=== PATIENT | female | born 2000 | race Caucasian/White ===

== ENCOUNTER 2021-03-18 17:41 | Emergency (ER) | payer OTHER, SELFPAY ==
--- NOTE | ~2021-03-18 | CT_ITS ---
EXAMINATION: CT abdomen pelvis w con INDICATION: Vomiting and weight loss TECHNIQUE: Computed tomographic images of the abdomen and pelvis were obtained after the administrati on of 100 cc of Omnipaque 350 intravenous contrast. The dose-length product (DLP) was 174.54 mGy-cm. Automated exposure control and iterative reconstruction technique were employed. COMPARISON: None available FINDINGS: The lung bases are clear. The heart size is normal. The liver, spleen, pancreas, gallbladde r, and adrenal glands are normal. The right kidney is unremarkable. There is a 10 mm cyst of the left kidney. No pathologically enlarged abdominal or pelvic lymph nodes are identified. There is no free intraperitoneal gas or evidence of bowel obstruction. The appendix is not clearly identified. IMPRESSION: 1. No CT correlate for the patient's symptoms. Reviewed, dictated and finalized at location A.
[2021-03-18 17:49] VITALS: BP 96/82; PULSE 104; RESP 17; TEMP 36.7; O2SAT 99
[2021-03-18 18:01] LABS: Basophils Percent Auto 0.4 % (0.2-1.2); Eosinophils Percent Auto 0.1 % (0-4.4); Hematocrit 43.7 % (37.0-47.0); Hemoglobin 14.2 g/dL (12.0-15.0); Immature Granulocyte Absolute 0.02 K/mm3 (0.00-0.031); Immature Granulocyte Percent A 0.3 % (0-0.5); Lymphocytes Absolute Auto 2.36 K/mm3 (0.9-3.2); Lymphocytes Percent Auto 32.7 % (18.3-44.2); Mean Corpuscular HGB Conc 32.5 g/dl (32-36); Mean Corpuscular Hemoglobin 28.5 pg (26-34); Mean Corpuscular Volume 87.6 fl (80-100); Mean Platelet Volume 10.5 fl (7.4-10.4); Monocytes Absolute Auto 0.6 K/mm3 (0.1-0.6); Monocytes Percent Auto 7.9 % (2.6-8.5); Neutrophils Absolute Auto 4.2 K/mm3 (1.3-6.7); Neutrophils Percent Auto 58.6 % (45.5-73.1); Platelet Count Result 200 k/mm3 (150-375); Red Blood Count 4.99 M/mm3 (4.2-5.4); Red Cell Distribution Width 13.1 % (11.5-14.5); White Blood Count 7.2 K/mm3 (4.5-10.0)
[2021-03-18 18:10] LABS: Alanine Aminotransferase 84 U/L (4-35); Albumin Level 5.2 g/dL (3.5-5.1); Alkaline Phosphatase 59 U/L (38-126); Anion Gap 13 mmol/L (8-16); Aspartate Amino Transferase 72 U/L (14-36); Bilirubin,Total 2.6 mg/dL (0.2-1.3); Blood Urea Nitrogen 21 mg/dL (7-17); Calcium 10.1 mg/dL (8.4-10.2); Carbon Dioxide 28 mmol/L (22-30); Chloride 95 mmol/L (98-107); Estimated CRCL calculation 77 ml/min; Estimated Glomerular Filt Rate > 60; Glucose 89 mg/dL (65-110); Lipase 57 U/L (23-300); Potassium 3.4 mmol/L (3.4-5.0); Sodium 136 mmol/L (137-145)
--- NOTE | 2021-03-18 18:10 | ED.GENADULT ---
HPI - General Adult General Chief complaint: Abdominal Pain Stated complaint: ABD pain x 3-4 days Time Seen by Provider: 03/18/21 17:49 Source: patient and RN notes reviewed Mode of arrival: ambulatory Limitations: no limitations History of Present Illness HPI narrative: Patient is a 20-year-old female who presents to emergency department for evaluation of nausea and vomiting since the went to urgent care yesterday was given Zofran but continues to have emesis and generalized abdominal pain patient denies any diarrhea rectal bleeding presents in no distress patient denies sick contacts or URI symptoms Related Data Allergies Allergy/AdvReac Type Severity Reaction Status Date / Time No Known Allergies Allergy Verified 03/18/21 17:54 Review of Systems Review of Systems: All systems reviewed & are unremarkable except as noted in HPI and below PMFSH Family History Family History (Updated 06/23/09 @ 11:03 by DOCTOR UNKNOWN) Other Diabetes mellitus Hypertension Social History Social History Second hand tobacco smoke exposure: Yes Gender identity (if verbalized by the patient): Female Exam Narrative: GENERAL: Well-appearing, well-nourished, uncomfortable and in no acute distress. HEAD: Normocephalic, atraumatic. EYES: PERRLA and EOMI. ENT: Nares clear, no rhinorrhea or epistaxis. Mucous membranes moist. CHEST: Clear to auscultation. No respiratory distress. No wheezes rales or rhonchi HEART: Regular rate and rhythm. No murmur heard. Normal peripheral pulses. ABDOMEN: Soft, generalized tenderness with voluntary guarding, nondistended, normal active bowel sounds. EXTREMITIES: Normal range of motion. No edema. SKIN: Warm, dry, no rash. NEURO: No focal deficits. Alert and oriented x3. Cranial nerves II through XII grossly intact PSYCH: Normal mood and affect. Course Course Emergency Course: Patient in the room no distress aware of case findings treatment plan diagnosis agreeing to follow-up as instructed felt appropriate for outpatient reevaluation made aware of case findings treatment plan and diagnosis Vital Signs Vital signs: Vital Signs Temperature 98.1 F 03/18/21 17:49 Pulse Rate 104 H 03/18/21 17:49 Respiratory Rate 17 03/18/21 17:49 Blood Pressure 96/82 L 03/18/21 17:49 Pulse Oximetry 99 03/18/21 17:49 Temperature 98.1 F 03/18/21 17:49 Pulse Rate 104 H 03/18/21 17:49 Respiratory Rate 17 03/18/21 17:49 Blood Pressure 96/82 L 03/18/21 17:49 Pulse Oximetry 99 03/18/21 17:49 Medical Decision Making MDM Narrative Medical decision making narrative: Patient presented with nausea and vomiting in the room in no distress aware of case findings treatment plan and diagnosis felt appropriate for outpatient reevaluation tolerating p.o. intake no concerning findings in the evaluation will be referred to primary care and gastroenterology for further evaluation Vital Signs Vital Signs: Vital Signs Temperature 98.1 F 03/18/21 17:49 Pulse Rate 104 H 03/18/21 17:49 Respiratory Rate 17 03/18/21 17:49 Blood Pressure 96/82 L 03/18/21 17:49 Pulse Oximetry 99 03/18/21 17:49 Temperature 98.1 F 03/18/21 17:49 Pulse Rate 104 H 03/18/21 17:49 Respiratory Rate 17 03/18/21 17:49 Blood Pressure 96/82 L 03/18/21 17:49 Pulse Oximetry 99 03/18/21 17:49 Lab Data Result diagrams: 03/18/21 17:56 03/18/21 17:56 Labs: Lab Results 03/18/21 03/18/21 03/18/21 Range/Units 17:56 17:56 18:14 WBC 7.2 (4.5-10.0) K/mm3 RBC 4.99 (4.2-5.4) M/mm3 Hgb 14.2 (12.0-15.0) g/dL Hct 43.7 (37.0-47.0) % MCV 87.6 (80-100) fl MCH 28.5 (26-34) pg MCHC 32.5 (32-36) g/dl RDW 13.1 (11.5-14.5) % Plt Count 200 (150-375) k/mm3 MPV 10.5 H (7.4-10.4) fl Immature Gran % (Auto) 0.3 (0-0.5) % Neut % (Auto) 58.6 (45.5-73.1) % Lymph % (Aut
[2021-03-18] MEDS: FAMOTIDINE 20 MG/2 ML VIAL IV PUSH (18:14)
[2021-03-18] MEDS: SODIUM CHLORIDE 0.9% IV 1,000 ML 999 ML IV CONT (18:14)
[2021-03-18] MEDS: ONDANSETRON INJ 4 MG/2 ML VIAL IV PUSH (18:15)
[2021-03-18] MEDS: HYOSCYAMINE SULFATE 0.125 MG TABLET PO (18:21)
[2021-03-18 18:23] LABS: Add Urine Microscopic? YES; Appearance Urine Clear (Clear); Bacteria Urine Trace /hpf; Bilirubin Urine Negative (Negative); Blood Urine 3+ (Negative); Color Urine Amber (Yellow); Glucose Urine UA Negative (Negative); Ketones Urine Negative (Negative); Leukocyte Esterase Ur Negative LEU/UL (Negative); Mucus Urine Heavy /lpf; Nitrate Urine Negative (Negative); Protein Urine 1+ mg/dL (Negative); Specific Grav Ur 1.025 (1.001-1.035); Squamous Epithelial Cell Urine Many /hpf (Few)
[2021-03-18 19:53] VITALS: BP 97/74; PULSE 100; RESP 16; O2SAT 99
== END 2021-03-18 20:09 | disposition home or self-care (01) ==
PROVIDERS: Emergency Medicine Emergency Medical Services; Emergency Provider Emergency Medicine
DX: R10.84 Generalized abdominal pain (principal); Z77.22 Contact with and (suspected) exposure to environmental tobacco smoke (acute) (chronic)
CPT/HCPCS: 36415; 74177; 80053; 81001; 81025; 83690; 85025; 87077; 87086; 87088; 96361; 96365; 96375; 99284; A9270; J0131; J2405; J7030; Q9967

== ENCOUNTER 2021-04-15 11:12 | Emergency (ER) | payer OTHER, SELFPAY ==
[2021-04-15 11:17] VITALS: BP 97/72; PULSE 76; RESP 18; TEMP 37.3; O2SAT 100
--- NOTE | 2021-04-15 12:15 | ED.NAVMDI ---
HPI - Nausea/Vomiting/Diarrhea General Chief complaint: Nausea/Vomiting/Diarrhea Stated complaint: Abd Pain,Vomiting Time Seen by Provider: 04/15/21 12:10 Source: patient Mode of arrival: ambulatory Limitations: no limitations History of Present Illness HPI Narrative: Patient is a 20-year-old female complaining of nausea and vomiting for the past months . Patient also states that she would have intermittent abdominal pain but currently denies any pain. Patient describes her vomitus is nonbilious nonbloody. Patient denies any chest pain, shortness of breath, diarrhea, fever, chills or urinary symptoms. Patient admits to smoking marijuana regularly. Related Data Allergies Allergy/AdvReac Type Severity Reaction Status Date / Time No Known Allergies Allergy Verified 04/15/21 11:20 Review of Systems Review of Systems: All systems reviewed & are unremarkable except as noted in HPI and below Constitutional: Constitutional: Denies body ache(s), Denies chills, Denies excessive sweating, Denies fatigue, Denies fever(s), Denies headache(s), Denies lethargy, Denies malaise, Denies weakness and Denies weight loss Eyes: Eyes: Denies blurry vision, Denies change in vision and Denies loss of vision ENT: Denies dizziness, Denies ear discharge, Denies headache(s), Denies lip swelling, Denies epistaxis, Denies nasal congestion, Denies neck pain, Denies throat swelling and Denies tongue swelling Cardiovascular: Cardiovascular: Denies chest pain, Denies chest pain at rest, Denies chest pain with activity, Denies diaphoresis, Denies rapid heart rate, Denies edema, Denies irregular heart rhythm, Denies lightheadedness, Denies palpitations, Denies dyspnea and Denies dyspnea on exertion Respiratory: Respiratory: Denies chest congestion, Denies cough, Denies hemoptysis, Denies dyspnea and Denies dyspnea on exertion Gastrointestinal: Gastrointestinal: Denies abdominal pain, Denies melena, Denies hematochezia, Denies diarrhea and Denies hematemesis Musculoskeletal: Musculoskeletal: Denies abnormal gait, Denies deformity, Denies joint swelling, Denies limited range of motion, Denies neck pain and Denies numbness Neurologic: Denies Abnormal speech present, Denies abnormal gait, Denies confusion, Denies dizziness, Denies headache(s), Denies focal weakness, Denies loss of vision, Denies numbness, Denies Other visual disturbances, Denies Sensory deficit (Neuro) and Denies weakness Psychiatric: Psychiatric: Denies confusion, Denies depression, Denies auditory hallucinations, Denies homicidal ideation and Denies suicidal ideation Endocrine: Endocrine: Denies cold intolerance, Denies excessive sweating, Denies fatigue, Denies heat intolerance and Denies palpitations Hematologic/Lymphatic: Hematologic/Lymphatic: Denies easy bleeding and Denies easy bruising Allergic/Immunologic: Allergic/Immunologic: Denies lip swelling, Denies throat swelling and Denies tongue swelling PMFSH Family History Family History (Updated 06/23/09 @ 11:03 by DOCTOR UNKNOWN) Other Diabetes mellitus Hypertension Social History Social History Second hand tobacco smoke exposure: Yes Gender identity (if verbalized by the patient): Female Comments Past medical history: None Family history: Diabetes, high blood pressure Social history: Positive for smoker, no EtOH, positive for marijuana use Exam Const: General: cooperative, healthy appearing, comfortable, no acute distress, well developed, alert and awake; No confusion Orientation/consciousness: oriented to person, oriented to place, oriented to time, patient oriented x3 and No confusion Limitations: no limitations HENMT: Head: normal to inspection, normocephalic and atraumatic Ears: hearing grossly normal bilaterally, TM normal on the right and TM normal on the left General nose exam: Normal external nose present, Normal nares present and No nasal discharge presen
[2021-04-15 12:19] LABS: Basophils Percent Auto 0.2 % (0.2-1.2); Hematocrit 39.6 % (37.0-47.0); Hemoglobin 13.1 g/dL (12.0-15.0); Immature Granulocyte Absolute 0.03 K/mm3 (0.00-0.031); Immature Granulocyte Percent A 0.4 % (0-0.5); Lymphocytes Absolute Auto 1.15 K/mm3 (0.9-3.2); Lymphocytes Percent Auto 13.9 % (18.3-44.2); Mean Corpuscular HGB Conc 33.1 g/dl (32-36); Mean Corpuscular Hemoglobin 29.2 pg (26-34); Mean Corpuscular Volume 88.4 fl (80-100); Mean Platelet Volume 10.7 fl (7.4-10.4); Monocytes Absolute Auto 0.4 K/mm3 (0.1-0.6); Monocytes Percent Auto 4.6 % (2.6-8.5); Neutrophils Absolute Auto 6.7 K/mm3 (1.3-6.7); Neutrophils Percent Auto 80.9 % (45.5-73.1); Platelet Count Result 174 k/mm3 (150-375); Red Blood Count 4.48 M/mm3 (4.2-5.4); Red Cell Distribution Width 13.1 % (11.5-14.5); White Blood Count 8.3 K/mm3 (4.5-10.0)
[2021-04-15 12:32] LABS: Alanine Aminotransferase 27 U/L (4-35); Albumin Level 4.7 g/dL (3.5-5.1); Alkaline Phosphatase 42 U/L (38-126); Anion Gap 11 mmol/L (8-16); Aspartate Amino Transferase 34 U/L (14-36); Bilirubin,Total 0.8 mg/dL (0.2-1.3); Blood Urea Nitrogen 19 mg/dL (7-17); Calcium 9.6 mg/dL (8.4-10.2); Carbon Dioxide 26 mmol/L (22-30); Chloride 96 mmol/L (98-107); Estimated CRCL calculation 90 ml/min; Estimated Glomerular Filt Rate > 60; Glucose 104 mg/dL (65-110); Lipase 31 U/L (23-300); Potassium 3.5 mmol/L (3.4-5.0); Sodium 133 mmol/L (137-145)
[2021-04-15 12:33] VITALS: BP 103/67; PULSE 56
[2021-04-15 12:34] VITALS: BP 118/78; PULSE 86
[2021-04-15 12:35] VITALS: BP 116/85; PULSE 111
[2021-04-15 12:37] LABS: Add Urine Microscopic? YES; Appearance Urine Clear (Clear); Bilirubin Urine Negative (Negative); Blood Urine 1+ (Negative); Color Urine Yellow (Yellow); Glucose Urine UA Negative (Negative); Ketones Urine 2+ mg/dL (Negative); Leukocyte Esterase Ur Trace LEU/UL (Negative); Mucus Urine Heavy /lpf; Nitrate Urine Negative (Negative); Protein Urine 2+ mg/dL (Negative); Squamous Epithelial Cell Urine Moderate /hpf (Few)
[2021-04-15 13:10] LABS: Specific Grav Ur 1.032 (1.001-1.035)
[2021-04-15 13:30] VITALS: BP 121/79; PULSE 73; RESP 16; O2SAT 100
[2021-04-15] MEDS: SODIUM CHLORIDE 0.9% IV 1,000 ML 999 ML IV CONT (13:46)
[2021-04-15] MEDS: PROMETHAZINE HCL 25 MG/ML AMPUL 12.5 MG IV PUSH (13:46)
[2021-04-15 15:04] VITALS: BP 121/79; PULSE 70; RESP 16; O2SAT 100
== END 2021-04-15 15:08 | disposition home or self-care (01) ==
PROVIDERS: Emergency Medicine; Emergency Provider Emergency Medicine
DX: R11.15 Cyclical vomiting syndrome unrelated to migraine (principal); F12.90 Cannabis use, unspecified, uncomplicated; F17.200 Nicotine dependence, unspecified, uncomplicated
CPT/HCPCS: 36415; 80053; 81001; 81025; 83690; 85025; 87086; 96361; 96374; 99284; J2550; J7030

== ENCOUNTER 2022-05-24 10:22 | Emergency (ER) | payer OTHER, SELFPAY ==
--- NOTE | ~2022-05-24 | CT_ITS ---
EXAMINATION: CT abdomen pelvis w con DATE: 05/24/2022 15:52 INDICATION: General is abdominal pain. Nausea and vomiting and diarrhea. TECHNIQUE: Computed tomography (CT) of the abdomen and pelvis was performed with 100 mL Omnipaque 350 intravenous contrast. Automated exposure control and iterative reconstruction technique were employe d. The dose-length product was 195.14 mGy-cm. COMPARISON: CT abdomen and pelvis 03/18/2021 FINDINGS: The visualized portions of the lung bases are clear without pneumonia or pleural effusion. The heart size is normal. No pericardial effusion. The liver, gallbladder, spleen, pancreas, adrenal glands, and right kidney are normal. There is a 10 mm cyst in left kidney. There are no dilated loops of bowel. The appendix is not visualized. There is physiologic fluid in the pelvis. There are no pat hologically enlarged lymph nodes. The bones are unremarkable. IMPRESSION: 1. No etiology for the patient's symptoms. Reviewed, dictated and finalized at location A.
[2022-05-24 10:35] VITALS: BP 122/74; PULSE 63; RESP 20; TEMP 36.8; O2SAT 99
--- NOTE | 2022-05-24 12:45 | ED.NAVMDI ---
HPI - Nausea/Vomiting/Diarrhea General Chief complaint: Nausea/Vomiting/Diarrhea Stated complaint: N/V/D FEVER Time Seen by Provider: 05/24/22 12:15 History of Present Illness HPI Narrative: Patient is a 21-year-old female with a history of cyclic vomiting syndrome here for evaluation of nausea, vomiting, and diarrhea for the past 2 days. Patient states that she has been unable to keep any food or fluids down, and after every p.o. trial she has vomited nonbloody/nonbilious emesis. She additionally reports a lower abdominal pain that is consistent with her cyclic vomiting flareups. She did smoke marijuana prior to onset of symptoms. She denies any dysuria, urgency or frequency, fevers, low back pain. She has never seen a GI specialist but is scheduled with a specialist at the end of this month at [place]. Related Data Allergies Allergy/AdvReac Type Severity Reaction Status Date / Time No Known Allergies Allergy Verified 04/15/21 11:20 Review of Systems Review of Systems: Gen: Denies fevers or chills Eyes: Denies eye pain or visual change ENT: Denies congestion Respiratory: Denies shortness of breath or cough CV: Denies chest pain or palpitations GI: Reports nausea, vomiting, abdominal pain and diarrhea. denies burning, urgency, frequency or hematuria Musculoskeletal: Denies back pain or muscle pain Neuro: Denies numbness, tingling, weakness or focal weakness Skin: Denies rash Except as documented, all other systems reviewed and negative [facility] Family History Family History (Updated 06/23/09 @ 11:03 by DOCTOR UNKNOWN) Other Diabetes mellitus Hypertension Social History Social History Second hand tobacco smoke exposure: Yes Gender identity (if verbalized by the patient): Female Exam Narrative: APPEARANCE: Well appearing, no pain in distress, well-nourished. Head: Normocephalic and atraumatic. EYES: PERRLA/EOMI, conjunctivae clear NOSE: No nasal drainage EARS: External ear normal in appearance THROAT: Oropharynx is clear. Mucous membranes are moist. NECK: Supple. No adenopathy, no masses. RESPIRATORY: Airway patent, respirations nonlabored. Clear to auscultation bilaterally, no rales, rhonchi, wheezing. CARDIOVASCULAR: Regular rate and rhythm without murmurs, rubs, or gallops. ABDOMINAL: Normoactive bowel sounds. Soft, nontender, nondistended. No rebound tenderness or guarding. MUSCULOSKELETAL: Extremities are warm and well-perfused. Moves all extremities well. No edema. NEURO: Normal speech. No focal neurologic deficits. SKIN: Skin is warm and dry. No rashes. PSYCHIATRIC: Normal affect/mood.. Course Vital Signs Vital signs: Vital Signs Temperature 98.2 F 05/24/22 10:35 Pulse Rate 63 05/24/22 10:35 Respiratory Rate 20 05/24/22 10:35 Blood Pressure 122/74 05/24/22 10:35 Pulse Oximetry 99 05/24/22 10:35 Oxygen Delivery Room Air 05/24/22 10:35 Temperature 98.2 F 05/24/22 10:35 Pulse Rate 76 05/24/22 17:03 Respiratory Rate 16 05/24/22 17:03 Blood Pressure 113/81 05/24/22 17:03 Pulse Oximetry 98 05/24/22 17:03 Oxygen Delivery Room Air 05/24/22 10:35 MDM - Nausea/Vomiting/Diarrhea MDM Narrative Medical decision making narrative: 21-year-old female with history of cyclic vomiting syndrome here for evaluation of nausea, vomiting and diffuse abdominal pain for the past several days. Patient smoked marijuana prior to symptom onset which is a known trigger for her. Here her vital signs are normal, she has mild tenderness to palpation in her lower abdomen but no rebound tenderness or guarding. Basic labs unremarkable, lipase normal. She appears dehydrated with ketones on her urinalysis. CT abdomen pelvis without acute findings. Patient tolerated her p.o. challenge in the ED. She was given Zofran, Reglan, Pepcid and Benadryl in addition to 2 L of fluids. Likely flareup of her cyclic vomiting syn
[2022-05-24 12:50] VITALS: BP 111/70; PULSE 61; RESP 14; O2SAT 100
[2022-05-24 13:04] LABS: Basophils Percent Auto 0.2 % (0.2-1.2); Hematocrit 38.2 % (37.0-47.0); Hemoglobin 12.6 g/dL (12.0-15.0); Immature Granulocyte Absolute 0.01 K/mm3 (0.00-0.031); Immature Granulocyte Percent A 0.2 % (0-0.5); Lymphocytes Absolute Auto 0.79 K/mm3 (0.9-3.2); Lymphocytes Percent Auto 15.8 % (18.3-44.2); Mean Corpuscular Hemoglobin 29.1 pg (26-34); Mean Corpuscular Volume 88.2 fl (80-100); Mean Platelet Volume 10.2 fl (7.4-10.4); Monocytes Absolute Auto 0.4 K/mm3 (0.1-0.6); Monocytes Percent Auto 8.2 % (2.6-8.5); Neutrophils Absolute Auto 3.8 K/mm3 (1.3-6.7); Neutrophils Percent Auto 75.6 % (45.5-73.1); Platelet Count Result 172 k/mm3 (150-375); Red Blood Count 4.33 M/mm3 (4.2-5.4)
[2022-05-24] MEDS: LACTATED RINGERS 1,000 ML 999 ML IV CONT ×2 (13:06→13:40)
[2022-05-24] MEDS: DICYCLOMINE HCL INJ 20 MG/2 ML VIAL IM (13:07)
[2022-05-24] MEDS: ONDANSETRON INJ 4 MG/2 ML VIAL IV PUSH (13:07)
[2022-05-24 13:10] LABS: Appearance Urine Clear (Clear); Bilirubin Urine 1+ (Negative); Blood Urine Negative (Negative); Color Urine Yellow (Yellow); Glucose Urine UA Negative (Negative); Ketones Urine 3+ mg/dL (Negative); Leukocyte Esterase Ur Negative LEU/UL (Negative); Nitrate Urine Negative (Negative); Protein Urine 2+ mg/dL (Negative); Specific Grav Ur >= 1.030 (1.001-1.035); Urobilinogen Urine 0.2 mg/dL (<2.0)
[2022-05-24 13:17] LABS: Alanine Aminotransferase 30 U/L (6-35); Albumin Level 5.2 g/dL (3.5-5.1); Alkaline Phosphatase 53 U/L (38-126); Anion Gap 12 mmol/L (8-16); Aspartate Amino Transferase 40 U/L (14-36); Blood Urea Nitrogen 13 mg/dL (7-17); Calcium 9.6 mg/dL (8.4-10.2); Carbon Dioxide 23 mmol/L (22-30); Chloride 101 mmol/L (98-107); Estimated Glomerular Filt Rate > 60; Glucose 105 mg/dL (65-110); Lipase 38 U/L (23-300); Sodium 136 mmol/L (137-145)
[2022-05-24 13:18] LABS: Bacteria Urine Trace /hpf; Mucus Urine Heavy /lpf; RBC Urine 0-2 /hpf (0-2); Squamous Epithelial Cell Urine Few /hpf (Few); WBC Urine 0-3 /hpf
[2022-05-24 13:21] LABS: Add Urine Microscopic? YES
[2022-05-24] MEDS: METOCLOPRAMIDE HCL INJ 10 MG/2 ML VIAL IV PUSH (14:47)
[2022-05-24] MEDS: diphenhydrAMINE HCl INJ 50 MG/ML VIAL 25 MG IV PUSH (14:47)
[2022-05-24 17:03] VITALS: BP 113/81; PULSE 76; RESP 16; O2SAT 98
[2022-05-24] MEDS: FAMOTIDINE 20 MG/2 ML VIAL IV PUSH (17:09)
== END 2022-05-24 17:12 | disposition home or self-care (01) ==
PROVIDERS: Emergency Medicine; Emergency Provider Emergency Medicine; PCP Internal Medicine Infectious Disease
DX: R11.15 Cyclical vomiting syndrome unrelated to migraine (principal)
CPT/HCPCS: 36415; 74177; 80053; 81001; 81025; 83690; 85025; 96361; 96372; 96374; 96375; 99284; J0500; J1200; J2405; J2765; J7120; Q9967

== ENCOUNTER 2022-05-26 14:26 | Observation (INO) | payer OTHER, SELFPAY ==
[2022-05-26 14:25] VITALS: BP 124/68; PULSE 65; RESP 20; TEMP 36.4; O2SAT 100
--- NOTE | 2022-05-26 15:35 | ED.ABDPAIN ---
HPI - Abdominal Pain General Chief Complaint: Abdominal Pain Stated Complaint: N/V History of Present Illness HPI narrative: 21-year-old female presents to the emergency room for evaluation of unresolved nausea, vomiting, diarrhea and abdominal pain. Patient has been seen in the emergency room multiple times for cyclical vomiting syndrome most recently seen 3 days ago, which she states was the last time that she has smoked marijuana. Patient states that she is taking her entire prescriptions worth of Zofran since her last visit here. Patient states that she has lightheaded and dizzy and has passed out multiple episodes because she cannot eat. Reports multiple episodes of nonbilious nonbloody vomiting. Related Data Allergies Allergy/AdvReac Type Severity Reaction Status Date / Time No Known Allergies Allergy Verified 04/15/21 11:20 Review of Systems Review of Systems: CONSTITUTIONAL: Denies fever, chills, or sweats. EYES: Denies visual changes, redness, or discharge. ENT: Denies rhinorrhea, congestion, sore throat, or otalgia. CARDIOVASCULAR: Denies chest pain, palpitations, or edema. RESPIRATORY: Denies cough or dyspnea. GASTROINTESTINAL: Reports abdominal pain, nausea, vomiting, and diarrhea. GENITOURINARY: Denies dysuria or hematuria. SKIN: Denies rash or itching. MUSCULOSKELETAL: Denies back pain, joint pain, or myalgia. NEUROLOGIC: Denies headache, numbness, dizziness, or weakness. PSYCHIATRIC: Denies anxiety or depression. [facility] Family History Family History Other Diabetes mellitus Hypertension Social History Social History Second hand tobacco smoke exposure: Yes Gender identity (if verbalized by the patient): Female Exam Narrative: GENERAL: Well-appearing, well-nourished, no physical limitations, and in no acute distress. HEAD: Normocephalic, atraumatic. EYES: Conjunctivae normal, PERRLA and EOMI. CHEST: Clear to auscultation. No respiratory distress. No wheezes rales or rhonchi. No tenderness. HEART: Regular rate and rhythm. No murmur heard. Normal peripheral pulses. EXTREMITIES: Normal range of motion. No edema. No clubbing or cyanosis SKIN: Warm, dry, no rash. No noted wounds NEURO: No focal deficits. Alert and oriented x3. MAEW. CN's II-XI intact bilaterally, normal gait PSYCH: Cooperative. Normal mood and affect. Course Vital Signs Vital signs: Vital Signs Temperature 36.4 C L 05/26/22 14:25 Pulse Rate 65 05/26/22 14:25 Respiratory Rate 20 05/26/22 14:25 Blood Pressure 124/68 05/26/22 14:25 Pulse Oximetry 100 05/26/22 14:25 Temperature 36.4 C L 05/26/22 14:25 Pulse Rate 65 05/26/22 14:25 Respiratory Rate 20 05/26/22 14:25 Blood Pressure 124/68 05/26/22 14:25 Pulse Oximetry 100 05/26/22 14:25 MDM - Abdominal Pain Lab Data Result diagrams: 05/26/22 15:56 05/26/22 15:56 Labs: Lab Results 05/26/22 05/26/22 05/26/22 Range/Units 15:56 15:56 15:56 WBC 4.6 (4.5-10.0) K/mm3 RBC 4.48 (4.2-5.4) M/mm3 Hgb 12.9 (12.0-15.0) g/dL Hct 40.0 (37.0-47.0) % MCV 89.3 (80-100) fl MCH 28.8 (26-34) pg MCHC 32.3 (32-36) g/dl RDW 12.9 (11.5-14.5) % Plt Count 171 (150-375) k/mm3 MPV 10.2 (7.4-10.4) fl Immature Gran % (Auto) 0.2 (0-0.5) % Neut % (Auto) 62.2 (45.5-73.1) % Lymph % (Auto) 29.2 (18.3-44.2) % Nicholas % (Auto) 7.8 (2.6-8.5) % Eos % (Auto) 0.2 (0-4.4) % Baso % (Auto) 0.4 (0.2-1.2) % Lymph # (Auto) 1.34 (0.9-3.2) K/mm3 Nicholas # (Auto) 0.4 (0.1-0.6) K/mm3 Eos # (Auto) 0.0 (0-0.3) K/mm3 Baso # (Auto) 0.0 (0.0-0.1) K/mm3 Abs Immat Gran (auto) 0.01 (0.00-0.031) K/mm3 Absolute Neuts (auto) 2.9 (1.3-6.7) K/mm3 Absolute Nucleated RBC 0.0 (0.0-0.012) K/mm3 Nucleated RBC % 0.0 (0.0-0.2) % Sodium 134 L (1
[2022-05-26 16:02] LABS: Basophils Percent Auto 0.4 % (0.2-1.2); Eosinophils Percent Auto 0.2 % (0-4.4); Hemoglobin 12.9 g/dL (12.0-15.0); Immature Granulocyte Absolute 0.01 K/mm3 (0.00-0.031); Immature Granulocyte Percent A 0.2 % (0-0.5); Lymphocytes Absolute Auto 1.34 K/mm3 (0.9-3.2); Lymphocytes Percent Auto 29.2 % (18.3-44.2); Mean Corpuscular HGB Conc 32.3 g/dl (32-36); Mean Corpuscular Hemoglobin 28.8 pg (26-34); Mean Corpuscular Volume 89.3 fl (80-100); Mean Platelet Volume 10.2 fl (7.4-10.4); Monocytes Absolute Auto 0.4 K/mm3 (0.1-0.6); Monocytes Percent Auto 7.8 % (2.6-8.5); Neutrophils Absolute Auto 2.9 K/mm3 (1.3-6.7); Neutrophils Percent Auto 62.2 % (45.5-73.1); Platelet Count Result 171 k/mm3 (150-375); Red Blood Count 4.48 M/mm3 (4.2-5.4); Red Cell Distribution Width 12.9 % (11.5-14.5); White Blood Count 4.6 K/mm3 (4.5-10.0)
[2022-05-26 16:15] LABS: Alanine Aminotransferase 49 U/L (6-35); Albumin Level 4.7 g/dL (3.5-5.1); Alkaline Phosphatase 48 U/L (38-126); Anion Gap 13 mmol/L (8-16); Aspartate Amino Transferase 41 U/L (14-36); Bilirubin,Total 1.3 mg/dL (0.2-1.3); Blood Urea Nitrogen 16 mg/dL (7-17); Calcium 9.2 mg/dL (8.4-10.2); Carbon Dioxide 27 mmol/L (22-30); Chloride 94 mmol/L (98-107); Estimated CRCL calculation 86 ml/min; Estimated Glomerular Filt Rate > 60; Glucose 81 mg/dL (65-110); Lipase 57 U/L (23-300); Potassium 3.2 mmol/L (3.4-5.0); Sodium 134 mmol/L (137-145)
[2022-05-26] MEDS: diphenhydrAMINE HCl INJ 50 MG/ML VIAL 25 MG IV PUSH (16:59)
[2022-05-26] MEDS: METOCLOPRAMIDE HCL INJ 10 MG/2 ML VIAL IV PUSH (16:59)
[2022-05-26] MEDS: SODIUM CHLORIDE 0.9% IV 1,000 ML 999 ML IV CONT (16:59)
[2022-05-26 17:23] LABS: Magnesium 2.5 mg/dL (1.6-2.3)
[2022-05-26 17:46] LABS: Bacteria Urine 4+ /hpf; Mucus Urine Moderate /lpf; RBC Urine 0-2 /hpf (0-2); Squamous Epithelial Cell Urine Moderate /hpf (Few); WBC Urine 0-3 /hpf
[2022-05-26 17:52] LABS: Appearance Urine Clear (Clear); Bilirubin Urine 1+ (Negative); Blood Urine Negative (Negative); Color Urine Yellow (Yellow); Glucose Urine UA Negative (Negative); Ketones Urine 4+ mg/dL (Negative); Leukocyte Esterase Ur Negative LEU/UL (Negative); Nitrate Urine Negative (Negative); Protein Urine Negative (Negative)
[2022-05-26 17:54] LABS: Add Urine Microscopic? YES
[2022-05-26 18:13] LABS: Amphetamine Screen Urine Negative (Negative); Barbiturate Screen Urine Negative (Negative); Benzodiazepines Screen Urine Negative (Negative); Cannabinoid Screen Urine Positive (Negative); Cocaine Screen Urine Negative (Negative); Methadone Screen Urine Negative (Negative); Opiate Screen Urine Negative (Negative); Phencyclidine Screen Urine Negative (Negative)
[2022-05-26] MEDS: LACTATED RINGERS 1,000 ML 999 ML IV CONT (18:35)
[2022-05-26] MEDS: PANTOPRAZOLE SODIUM IV 40 MG VIAL IV PUSH (18:54)
[2022-05-26] MEDS: DICYCLOMINE HCL INJ 20 MG/2 ML VIAL IM (18:55)
--- NOTE | 2022-05-26 19:49 | ADMGEN ---
This patient, Latoya Ramsey, was admitted to 2 Medical Room [id number] Patient/family oriented to hospital policies and general routines including ID bracelet, bed and alarms, visiting hours, pain management, procedures, bathroom and other care routines, personal items, smoking policy, room service/diet, and visiting hours. Information on how to activate the Rapid Response Team has been discussed. Patient/Family are encouraged to report perceived risks to care and to ask questions if they do not understand what they are told or what they should do.
[2022-05-26] MEDS: SODIUM CHLORIDE 0.9% IV 1,000 ML 125 ML IV CONT (20:06)
[2022-05-26 21:01] VITALS: BMI 18.7
[2022-05-26 21:02] VITALS: BP 111/59; PULSE 59; RESP 21; TEMP 36.8; O2SAT 100
--- NOTE | 2022-05-26 23:15 | PM.IMHP ---
H&P: HPI History of Present Illness Date/Time: 05/26/22 23:15 Chief Complaint: Nausea and vomiting. Narrative: This is a very pleasant 21-year-old female with history of cannabis abuse, suspected cyclic vomiting syndrome and/or cannabinoid induced hyperemesis who presented to the emergency department via private vehicle from home for evaluation of nausea and vomiting. She was seen in the ED 3 days ago with complaints of nausea, vomiting, and diarrhea for [address] of the abdomen/pelvis and labs at that time were reassuring and she was able to be discharged home after receiving supportive care. Unfortunately her symptoms returned the following day and despite taking the Zofran that she was prescribed, she continues to have ongoing nausea and vomiting. She has not been able to hold down anything to eat or drink and she is frequently getting lightheaded and dizzy and in fact she thinks she may have even lost consciousness while vomiting. In the ER today she has some mild electrolyte abnormalities including hyponatremia and hypokalemia. Urine showed 4+ ketones and due to ongoing nausea she is being admitted for hydration and supportive care. She has not used marijuana for about 5 days and it is her intention to quit smoking altogether although it has helped her anxiety quite a bit. At the time my evaluation she continues to have nausea and had an episode of emesis not long before I entered the room. She also complains of burning like discomfort in epigastric region which radiates up into the back of her throat. She does not typically get indigestion except when she has the symptoms. She denies fever but she has had hot and cold sweats. She denies severe abdominal pain. No chest pain or shortness of breath. No melena or hematochezia. She has not noticed any blood in the vomit. Review of Systems Review of Systems: Twelve systems were reviewed and are negative except for as per HPI. [facility] Past Medical History Medical History (Updated 05/26/22 @ 23:03 by Tia Banda PA-C) Cannabis abuse Cyclic vomiting syndrome Depression with anxiety Surgical History Surgical History (Updated 05/26/22 @ 23:03 by Tia Banda PA-C) No history of previous surgery Family History Family History Grandparent Diabetes mellitus Grandparent Hypertension Social History Social History (Updated 05/26/22 @ 23:56 by Tia Banda PA-C) Social History: Surrogate medical decision maker: Dyan Fna, mother. Code status: Full code. Smoking status: Never smoker Second hand tobacco smoke exposure: Yes Alcohol intake: current Drinks per week: 2 Substance use: current Substance use type: marijuana Additional living arrangements comments: The patient lives with her mother in [place]. Additional occupation/education comments: Works at [employer]. 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 Spiritual care concerns: No Meds Home Medications and Allergies Home Medications Medication Instructions Recorded Confirmed Type No Home Medications 05/26/22 05/26/22 History Allergies Allergy/AdvReac Type Severity Reaction Status Date / Time No Known Allergies Allergy Verified 05/26/22 20:03 Vital Signs Vital Signs - 24 hr 05/26/22 14:25 05/26/22 20:00 05/26/22 21:02 Temperature 97.5 F L 98.2 F Pulse Rate 65 59 L Respiratory Rate 20 21 H Blood Pressure 124/68 111/59 L Pulse Oximetry 100 100 Oxygen Delivery Room Air Exam Narrative: General: Mildly ill-appearing female supine in bed. Weight: 52.6 kilograms. BMI: 18.7. HEENT: PERRL, EOMI. Sclera anicteric. Dry mucous membranes. Neck: Supple. Respiratory: Lungs are clear to auscultation bilaterally. Cardiovascular: Regular rate and rhythm with S1-S2. Gastrointestinal: Abdomen is soft, flat, and nondistended with positive bowel sounds. She is somewhat tender to deeper p
[2022-05-27] VITALS (7 sets, daily range): BP systolic 106–121; BP diastolic 56–79; PULSE 52–61; RESP 16–21; TEMP 36.6–37.4; O2SAT 99–100
[2022-05-27 00:15] LABS: Anion Gap 8 mmol/L (8-16); Blood Urea Nitrogen 11 mg/dL (7-17); Calcium 8.1 mg/dL (8.4-10.2); Carbon Dioxide 24 mmol/L (22-30); Chloride 102 mmol/L (98-107); Estimated CRCL calculation 105 ml/min; Estimated Glomerular Filt Rate > 60; Glucose 75 mg/dL (65-110); Sodium 134 mmol/L (137-145)
[2022-05-27] MEDS: SODIUM CHLORIDE 0.9% IV 1,000 ML 125 ML IV CONT (00:16)
[2022-05-27] MEDS: ONDANSETRON INJ 4 MG/2 ML VIAL IV PUSH ×3 (00:17→14:01)
[2022-05-27] MEDS: LORazepam INJ (*CRX) 2 MG/ML VIAL 0.5 MG IV PUSH ×3 (00:18→23:31)
[2022-05-27] MEDS: DEXTROSE 5%/0.9% SOD CHL 1,000 ML 75 ML IV CONT ×2 (00:55→14:01)
[2022-05-27] MEDS: PANTOPRAZOLE SODIUM IV 40 MG VIAL IV PUSH ×2 (00:55→08:52)
[2022-05-27 01:31] LABS: HAV RESULT Negative (Negative); Hepatitis B Core IgM Result Negative (Negative)
[2022-05-27 01:43] LABS: Hepatitis C Virus Antibody Negative (Negative)
[2022-05-27 01:54] LABS: Hepatitis B Surface Antigen Negative (Negative)
--- NOTE | 2022-05-27 14:44 | PM.IMPN ---
Progress Note: A&P Assessment and Plan (1) Intractable cyclical vomiting: Code(s): R11.15 - Cyclical vomiting syndrome unrelated to migraine Status: Acute Assessment and Plan: continue to provide with IV fluids and medication. (2) Dehydration: Code(s): E86.0 - Dehydration Status: Acute Assessment and Plan: Continue with IV fluid (3) Ketonuria: Code(s): R82.4 - Acetonuria Status: Acute Assessment and Plan: IV fluids (4) Electrolyte abnormality: Code(s): E87.8 - Other disorders of electrolyte and fluid balance, not elsewhere classified Status: Acute Assessment and Plan: replace and monitor (5) Cannabis abuse: Code(s): F12.10 - Cannabis abuse, uncomplicated Status: Acute Assessment and Plan: counseling provided to patient (6) Depression with anxiety: Code(s): F41.8 - Other specified anxiety disorders Status: Acute Assessment and Plan: stable and counseling given (7) Elevated LFTs: Code(s): R79.89 - Other specified abnormal findings of blood chemistry Status: Acute Assessment and Plan: monitor closely Plan The patient presented to the emergency department today for evaluation of ongoing nausea and vomiting, she has not been able to hold down food or drink for going on 5 days. She was seen emergency department several days ago which time she was given a prescription for Zofran which unfortunately has not helped. Labs today are consistent with dehydration with several electrolyte abnormalities including mild hyponatremia and hypokalemia. She has 4+ ketones in her urine as well. At this time she is being admitted for volume resuscitation and replacement of her electrolyte abnormalities. Antiemetics and analgesics available as needed. She has been started on Protonix for GERD like symptoms. Ativan has been ordered p.r.n. for her anxiety, this may help with her pain and vomiting as well. LFTs are likely elevated due to the ongoing vomiting though will check hepatitis panel for completeness sake. Abdominal exam does not suggest acute gallbladder or liver issue. We discussed the importance of using marijuana socially and in moderation and the patient intends on quitting altogether, perhaps trying gummies to help with her anxiety. Subjective Date/time seen: 05/27/22 14:44 Patient was seen during the rounds today. Patient is feeling slightly better. Decreased abdominal pain. No nausea. No vomiting. No shortness of breath or chest pain. Mood sta Review of Systems Review of Systems: All systems reviewed & are unremarkable except as noted in HPI and below ( in history and physical examination) Exam Narrative: General: Mildly ill-appearing female supine in bed. Weight: 52.6 kilograms. BMI: 18.7. HEENT: PERRL, EOMI. Sclera anicteric. Dry mucous membranes. Neck: Supple. Respiratory: Lungs are clear to auscultation bilaterally. Cardiovascular: Regular rate and rhythm with S1-S2. Gastrointestinal: Abdomen is soft, flat, and nondistended with positive bowel sounds. She is somewhat tender to deeper palpation epigastric and periumbilical region. No guarding or rebound tenderness. Skin: Warm and dry. No rash or lesions on limited exam. Extremities: No cyanosis, clubbing, or edema. Radial and pedal pulses intact. Neurological: Alert. Cranial nerves 2-12 are grossly intact. No gross focal deficits to casual conversation. Psychiatric: Pleasant and cooperative with normal mood and affect. Judgment and insight intact. Objective Data Vital Signs Vital Signs: Vital Signs - 24 hr 05/26/22 20:00 05/26/22 21:02 05/27/22 02:18 Temperature 36.8 C 36.8 C Pulse Rate 59 L 60 Respiratory Rate 21 H 21 H Blood Pressure 111/59 L 111/56 L Pulse Oximetry 100 100 Oxygen Delivery Room Air 05/27/22 06:50 05/27/22 08:55 05/27/22 10:00 Temperature 36.6 C 37.0 C Pulse Rate 53 L 52
[2022-05-27] MEDS: POTASSIUM CHLORIDE INJ 40 MEQ in SODIUM CHLORIDE 0.9% IV 500 ML 130 MEQ IVPB (15:14)
[2022-05-28 06:00] VITALS: BP 114/62; PULSE 54; RESP 21; TEMP 36.3; O2SAT 100
[2022-05-28] MEDS: DEXTROSE 5%/0.9% SOD CHL 1,000 ML 75 ML IV CONT (07:33)
[2022-05-28 08:09] VITALS: RESP 20; O2SAT 100
[2022-05-28 08:13] LABS: Alanine Aminotransferase 45 U/L (6-35); Albumin Level 3.8 g/dL (3.5-5.1); Alkaline Phosphatase 38 U/L (38-126); Anion Gap 11 mmol/L (8-16); Aspartate Amino Transferase 30 U/L (14-36); Bilirubin,Total 1.1 mg/dL (0.2-1.3); Blood Urea Nitrogen 4 mg/dL (7-17); Calcium 8.2 mg/dL (8.4-10.2); Carbon Dioxide 22 mmol/L (22-30); Chloride 104 mmol/L (98-107); Estimated CRCL calculation 105 ml/min; Estimated Glomerular Filt Rate > 60; Glucose 93 mg/dL (65-110); Potassium 3.1 mmol/L (3.4-5.0); Sodium 137 mmol/L (137-145)
[2022-05-28] MEDS: PANTOPRAZOLE SODIUM IV 40 MG VIAL IV PUSH (08:15)
[2022-05-28 10:28] VITALS: BP 100/54; PULSE 95; RESP 16; TEMP 36.5; O2SAT 100
[2022-05-28] MEDS: LORazepam INJ (*CRX) 2 MG/ML VIAL 0.5 MG IV PUSH (13:23)
[2022-05-28 14:44] VITALS: BP 97/60; PULSE 84; RESP 18; TEMP 36.9; O2SAT 100
[2022-05-28] MEDS: POTASSIUM CHLORIDE 20 MEQ TABLET 40 MEQ PO (15:39)
--- NOTE | 2022-05-28 15:54 | PM.DS ---
DS: Admitting Diagnosis Discharge Date 05/28/2022 Admitting Diagnosis cyclic vomiting DS: Discharge Diagnosis Discharge Diagnosis (1) Intractable cyclical vomiting: Code(s): R11.15 - Cyclical vomiting syndrome unrelated to migraine Status: Acute Assessment and Plan: Presented for evaluation of ongoing nausea and vomiting, unable to keep down solids or liquids for several days. She has been evaluated in the ED several days prior and given a prescription for Zofran which did not improve symptoms. She was admitted to the hospitalist service and was rehydrated with IV fluids. Supportive care provided including antiemetics. Eventually was able to advance diet and able to tolerate a bland diet which she will continue (2) Dehydration: Code(s): E86.0 - Dehydration Status: Acute Assessment and Plan: Patient dehydrated by exam and laboratory evaluation on presentation. She was rehydrated with IV fluids and able to tolerate appropriate p.o. intake. (3) Ketonuria: Code(s): R82.4 - Acetonuria Status: Acute Assessment and Plan: Secondary to above. Rehydrated. (4) Electrolyte abnormality: Code(s): E87.8 - Other disorders of electrolyte and fluid balance, not elsewhere classified Status: Acute Assessment and Plan: Hypokalemia: Potassium was low and was supplemented. Anticipate resolution with advancement of diet. Will continue p.o. potassium supplement for 1 week and follow-up for repeat potassium levels with results to PCP (5) Cannabis abuse: Code(s): F12.10 - Cannabis abuse, uncomplicated Status: Acute Assessment and Plan: Likely contributing to cyclic vomiting. Counseled on limiting use. (6) Depression with anxiety: Code(s): F41.8 - Other specified anxiety disorders Status: Acute Assessment and Plan: No acute issues. (7) Elevated LFTs: Code(s): R79.89 - Other specified abnormal findings of blood chemistry Status: Acute Assessment and Plan: Mildly elevated, possibly due to ongoing vomiting. Hepatitis panel negative. AST normalized, ALT improved, anticipate resolution. DS: Summary Hospital Course Hospital Course: date of admission: 05/26/2022 date of discharge: 05/28/2022 Latoya Ramsey is a 21-year-old female with a history of depression, anxiety, cannabis abuse common cyclic vomiting who presented to the emergency department on 05/26/2022 with complaints of nausea, vomiting ongoing for several days, no improvement with antiemetics to the point where she could not tolerate any p.o. intake. On presentation to the ED, her vital signs were stable, she was afebrile, potassium was 3.2, magnesium 2.5, AST and ALT mildly elevated, and additional laboratory workup was unremarkable. She was admitted to the hospitalist service for further evaluation and management. Please see above for further details. Vomiting resolved and patient was able to eventually tolerate a bland diet which she will continue. Discussed worrisome signs and symptoms for which to return and she was educated on her medications. She was discharged in hemodynamically stable condition on 05/28/2022. Status at Discharge Functional status at discharge: independent ambulation Overall status at discharge: patient is back to baseline Time Spent with Patient Time attestation: Total time spent providing and/or coordinating discharge services: 45 minute Time spent: Greater than 30 minutes Exam Narrative: General: well-nourished, well-appearing 21-year-old female, sitting up in bed, comfortable, NARD Neuro: awake, alert and oriented x4, speech clear, no focal neuro deficits noted HEENMT: normocephalic, atraumatic, EOMI, sclerae anicteric, moist oral mucosa Respiratory: clear to auscultation bilaterally, nonlabored breathing Cardio: regular rate, regular rhythm with S1-S2 Abdomen: nondistended, normoactive b
== END 2022-05-28 16:30 | disposition home or self-care (01) ==
LOC: ANHED 16:10 → ANH2MED 19:33
PROVIDERS: Internal Medicine; Physician Assistant; Admitting Provider Internal Medicine; Emergency Provider Nurse Practitioner Family; PCP Internal Medicine Infectious Disease; Visit Provider Physician Assistant
DX: R11.15 Cyclical vomiting syndrome unrelated to migraine (principal); E87.1 Hypo-osmolality and hyponatremia; E86.0 Dehydration; R82.4 Acetonuria; E87.6 Hypokalemia; F12.10 Cannabis abuse, uncomplicated; F41.8 Other specified anxiety disorders; R79.89 Other specified abnormal findings of blood chemistry; F10.90 Alcohol use, unspecified, uncomplicated; Z77.22 Contact with and (suspected) exposure to environmental tobacco smoke (acute) (chronic)
CPT/HCPCS: 36415; 80048; 80053; 80074; 80307; 81001; 81025; 83690; 83735; 84443; 85025; 96361; 96365; 96366; 96372; 96374; 96375; 96376; 99285; A9270; C9113; G0378; G0379; J0500; J1200; J2060; J2405; J2765; J3480; J7030; J7040; J7042; J7120